=== PATIENT | female | born 1980 | race Caucasian/White ===

== ENCOUNTER 2016-08-06 21:57 | Emergency (ER) | payer OTHER ==
[~2016-08-06] VITALS: Ht 170.2 cm; Wt 68.0 kg
--- NOTE | 2016-08-07 00:11 | ED THROAT/DENTAL COMPLAINT ---
History of Present Illness General Chief Complaint: Sore Throat, Dental Pain Stated Complaint: SORE THROAT, RIGHT SIDED EAR PAIN Source: patient Exam Limitations: no limitations Vital Signs & Intake/Output Vital Signs & Intake/Output Vital Signs Date Time Temp Pulse Resp B/P Pulse O2 O2 Flow FiO2 Ox Delivery Rate 08/07 0001 98 Room Air 08/06 2202 99.6 118 20 124/82 98 Room Air ED Intake and Output 08/07 0000 08/06 1200 Intake Total Output Total Balance Patient 150 lb Weight Allergies Coded Allergies: NO KNOWN ALLERGIES (08/06/16) Triage Note: TRIAGE: PT TO ER C/C PAIN TO L SIDE OF THROAT AND EAR, ONSET THIS MORNING. CONSTANT SINCE ONSET. MOTHER STATES "IT SEEMS LIKE HER JAW IS SWOLLEN". ALSO COMPLAINS OF FEELING HOT, HAVING CHILLS AND FEELING DIZZY. Triage Nurses Notes Reviewed? yes : No Patient currently breastfeeds: No HPI: This patient is a 35-year-old female presented to the emergency department today for evaluation of a sore throat. She reported that her symptoms began this morning and have been worsening. Symptoms have been constant and worse with swallowing. He gets up to a 9 out of 10 as throbbing. Pain occasionally radiates up to the left ear. The patient reported chills and tactile fevers. She denied any chest pain, difficulty breathing, abdominal pain, nausea, or vomiting. The patient took Advil for her symptoms this morning. (CASSIE LENNON,SONYA) Reconcile Medications Augmentin (Augmentin 500-125 Tablet) 500 MG-125 MG TABLET 1 TAB PO BID PHARYNGITIS [BENADRYL/LIDO/MAALOX] 15 ML ORAL.SUSP 5 ML PO TID PRN SORE THROAT 1/3 BENADRYL 1/3 LIDOCAINE 1/3 MAALOX SWISH AND SWALLOW (RAQUEL GRANGER,MAC Araiza) Past History Travel History Traveled to [place] past 21 day No Medical History Any Pertinent Medical History? 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 No (SONYA MATTHEWS PA-C) Review of Systems Review of Systems Constitutional: Reports: see HPI. EENTM: Reports: see HPI. Respiratory: Reports: no symptoms. Cardiovascular: Reports: no symptoms. GI: Reports: no symptoms. Genitourinary: Reports: no symptoms. Musculoskeletal: Reports: no symptoms. Skin: Reports: no symptoms. Neurological/Psychological: Reports: no symptoms. All Other Systems: Reviewed and Negative (SONYA MATTHEWS PA-C) Physical Exam Physical Exam Mouth/Throat: PHARYNGEAL INJECTION WITH TONSILLAR EXUDATES. mILD UVULAR SHIFT TO THE RIGHT WITH 2+ TONSILS ON THE LEFT. nO DROOLING OR TRISMUS. nO STRIDOR. nO MANDIBULAR OR MAXILLARY SWELLING. nO DENTAL TENDERNESS. nO UVULAR SWELLING. Comments: Well-developed well-nourished person in mild distress HEENT: Head normocephalic, moist mucous membranes Bilateral external auditory canals nonerythematous and without debris. Bilateral TMs pearly joyner and nonbulging Neck: Supple. Bilateral submandibular lymphadenopathy which is mildly tender to palpation Back: Normal gait Respiratory: No respiratory distress. Speaking in full sentences. Lungs clear to auscultation bilaterally Extremity: Normal pulses Neuro: Alert oriented x3, cranial nerves II through XII grossly intact. Skin: No appreciable rash on exposed skin, skin is warm and dry. Psych: Mood and affect is normal Core Measures ACS in differential dx? No Severe Sepsis Present: No Septic Shock Present: No (SONYA MATTHEWS PA-C) Progress Differential Diagnosis: epiglottitis, Ludwigs angina, meningitis, odontogenic abscess, dieter-tonsillar abscess, pharyngeal for. body, stomatitis/gingivitis, strep pharyngitis Plan of Care: Orders Procedure Date/time Status URINE 08/07 0003 Complete THROAT CULTURE W/QUICK STREP 08/061 Active Laboratory Tests 08/07/16 0009: Urine Test NEGATIVE Hand-Off Endorsed To: RAQUEL GRANGER,MAC rAaiza Endorsed Time: 51 Pending: CT, other (SONYA MATTHEWS PA-C) Diagnostic Imaging: Viewed by Me: CT Scan. Discussed w/RAD: CT Scan. Radiology Impression: PATIENT: GEOVANNI LOVE PRESENT AGE: 35 PATIENT ACCOUNT NO: [id number] : 81 LOCATION: [facility] ORDERING PHYSICIAN: SONYA MATTHEWS PA-C SERVICE DATE: 08/07/16 EXAM TYPE: CAT - CT NECK W IV CONTRAST EXAMINATION: CT SOFT TISSUE NECK WITH CONTRAST CLINICAL INFORMATION: Shortness through with left tonsillar swelling. COMPARISON : None. TECHNIQUE: Multidetector volumetric imaging of the neck was performed after administration of 96 mL of Optiray 320 IV contrast. Coronal and sagittal reformatted images were obtained at the technologist workstation. FINDINGS: There is a peripherally enhancing region of the left palatine tonsil measuring 2 x 1.4 x 1.6 cm. This is suspicious for a peritonsillar abscess. Mildly prominent cervical lymph nodes are present. There is a left jugular chain node measuring 1.8 x 1.1 cm on image 42/130. The parotid glands are homogeneous in attenuation. The submandibular glands are normal. The laryngeal structures are normal. The parapharyngeal fat is preserved. No retropharyngeal fluid collection is seen. The thyroid gland is normal. The superior mediastinum is unremarkable. The lung apices are clear. The mastoid air cells and visualized portions of the paranasal sinuses are well-aerated. The temporomandibular joints are normal. No periapical disease is identified. No osseous abnormalities are seen. The imaged portions of the brain parenchyma are unremarkable. IMPRESSION: Left peritonsillar abscess. Prominence of left jugular chain lymph nodes likely reactive. DICTATED BY: MYCHAL FERNÁNDEZ MD DATE/TIME DICTATED:08/07/16100 PRIVATE DETECTIVE: YOLETTE DATE/TIME TRANSCRIBED:08/07/16100 CONFIDENTIAL, DO NOT COPY WITHOUT APPROPRIATE AUTHORIZATION. <Electronically signed in Other Vendor System> SIGNED BY: MYCHAL FERNÁNDEZ MD 08/07/169 (RAQUEL GRANGER,MAC Araiza) Departure Departure Disposition: HOME OR SELF CARE Condition: Stable Referrals: ALTAGRACIA CUMMINS (PCP/Family) Additional Instructions: TAKE ANTIBIOTIC PRESCRIBED. REST. STAY HYDRATED. RETURN FOR ANY WORSENING SYMPTOMS OR CONCERNS. Departure Forms: Customer Survey General Discharge Information Prescriptions: Current Visit Scripts Augmentin (Augmentin 500-125 Tablet) 1 TAB PO BID #20 TAB [BENADRYL/LIDO/MAALOX] 5 ML PO TID PRN SORE THROAT #150 ML 1/3 BENADRYL 1/3 LIDOCAINE 1/3 MAALOX SWISH AND SWALLOW (CASSIE LENNON,SONYA) Departure Clinical Impression Primary Impression: Peritonsillar abscess Secondary Impressions: Pharyngitis Qualifiers: Pharyngitis/tonsillitis etiology: unspecified etiology Qualified Code: J02.9 - Acute pharyngitis, unspecified PA/TECHNICAL ASSOC Co-Sign Statement Statement: ED Attending supervision documentation- [X] I saw and evaluated the patient. I have also reviewed all the pertinent lab results and diagnostic results. I agree with the findings and the plan of care as documented in the PA's/TECHNICAL ASSOC's documentation. [X] I have reviewed the ED Record and agree with the PA's/TECHNICAL ASSOC's documentation. [] Additions or exceptions (if any) to the PAs/TECHNICAL ASSOC's note and plan are summarized below: [] (RAQUEL GRANGER,MAC Araiza)
[2016-08-07] MEDS ORDERED: AUGMENTIN 500-1 EACH PO (01:02)
[2016-08-07] MEDS ORDERED: BENADRYL/LIDO/MAALOX PO (01:04)
--- NOTE | 2016-08-07 01:09 | CT SCAN REPORT ---
EXAMINATION: CT SOFT TISSUE NECK WITH CONTRAST CLINICAL INFORMATION: Shortness through with left tonsillar swelling. COMPARISON: None. TECHNIQUE: Multidetector volumetric imaging of the neck was performed after administration of 96 mL of Optiray 320 IV contrast. Coronal and sagittal reformatted images were obtained at the technologist workstation. FINDINGS: There is a peripherally enhancing region of the left palatine tonsil measuring 2 x 1.4 x 1.6 cm. This is suspicious for a peritonsillar abscess. Mildly prominent cervical lymph nodes are present. There is a left jugular chain node measuring 1.8 x 1.1 cm on image 42/130. The parotid glands are homogeneous in attenuation. The submandibular glands are normal. The laryngeal structures are normal. The parapharyngeal fat is preserved. No retropharyngeal fluid collection is seen. The thyroid gland is normal. The superior mediastinum is unremarkable. The lung apices are clear. The mastoid air cells and visualized portions of the paranasal sinuses are well-aerated. The temporomandibular joints are normal. No periapical disease is identified. No osseous abnormalities are seen. The imaged portions of the brain parenchyma are unremarkable. IMPRESSION: Left peritonsillar abscess. Prominence of left jugular chain lymph nodes likely reactive.
[2016-08-07 02:02] VITALS: BP 120/82
== END 2016-08-07 02:03 ==
LOC: ERH 21:57
DX: L02.91 Cutaneous abscess, unspecified (principal); J02.9 Acute pharyngitis, unspecified; Z72.0 Tobacco use
CPT/HCPCS: 81025; 96365; 96375; J1885